=== PATIENT | male | born 1970 | race Caucasian/White ===

== ENCOUNTER 2024-04-14 08:53 | Day surgery (SDC) | payer OTHER ==
[2024-04-07 11:29] VITALS: BMI 28.1
[2024-04-14] MEDS ORDERED: LIDOCAINE HCL/PF 2% SDV 5ML VIAL ONE (10:43)
[2024-04-14 11:15] VITALS: RESP 18
[2024-04-14 11:37] VITALS: BP 113/75; PULSE 68; TEMP 97.5
== END 2024-04-14 11:35 | disposition home or self-care (01) ==
LOC: FASU-ENDO 08:53
PROVIDERS: ATTEND Internal Medicine Gastroenterology
PROC: 0DJD8ZZ Inspection of Lower Intestinal Tract, Via Natural or Artificial Opening Endoscopic (ICD-10-PCS; principal; 2024-04-14 10:52)
DX: Z12.11 Encounter for screening for malignant neoplasm of colon (principal)

== ENCOUNTER 2024-06-02 12:26 | Emergency (ER) | payer OTHER ==
[2024-06-02 12:34] VITALS: BP 112/74; PULSE 89; RESP 18; TEMP 97.8; BMI 28.1
== END 2024-06-02 13:18 | disposition home or self-care (01) ==
LOC: JERFT 12:26
DX: S09.90XA Unspecified injury of head, initial encounter (principal); W22.09XA Striking against other stationary object, initial encounter; Y92.481 Parking lot as the place of occurrence of the external cause
CPT/HCPCS: 99283-25